=== PATIENT | female | born 1935 | race Caucasian/White ===

== ENCOUNTER 2022-08-31 02:52 | Inpatient (IN) ==
[2022-08-31] MEDS ORDERED: NS 0.9% 1000 ml BAG 1,000 ML IV ONE (03:01)
[2022-08-31 03:28] LABS: Hematocrit 37 % (35-47); Hemoglobin 11.8 g/dL (12.0-16.0); Mean Corpuscular HGB Conc 32 g/dL (31-36); Mean Corpuscular Hemoglobin 30 pg (27-31); Mean Corpuscular Volume 94 fL (80-97); Mean Platelet Volume 9.5 fL (7.4-10.4); Platelet Count 227 10^3/uL (150-450); Red Blood Count 3.93 10^6 /uL (3.70-4.87); Red Cell Distribution Width 14 % (10-15); White Blood Count 23.5 10^3/uL (3.5-10.8)
[2022-08-31] MEDS ORDERED: Pantoprazole VIAL 40 MG VIAL IV ONE (04:01)
[2022-08-31 04:07] LABS: Albumin 3.5 g/dL (3.2-5.2); Albumin/Globulin Ratio 1.4 (1-3); Calcium 9.3 mg/dL (8.6-10.3); Creatinine, Serum 3.28 mg/dL (0.51-0.95); Globulin 2.5 g/dL (2-4); Total Bilirubin 0.9 mg/dL (0.2-1.0); eGFR CKD-EPI 12.9 (>60)
[2022-08-31] MEDS ORDERED: Piperacillin/Tazobac ADVAN 3.375 GM in NS 0.9% 100 ml BAG 100 ML IV ONE (04:13)
[2022-08-31 04:20] LABS: Dohle Bodies Present; Hypochromasia 1+; RBC Morphology Normal (Normal)
[2022-08-31 04:21] LABS: ABS Lymphocytes 0.3 10^3/ul (1.0-4.8); ABS Monocytes 1.4 10^3/ul (0-0.8); ABS Neutrophils 21.8 10^3/ul (1.5-7.7); Lymphocyte % 1.2 %
[2022-08-31 04:30] LABS: Urine Appearance Cloudy; Urine Bilirubin Negative (Negative); Urine Blood Negative (Negative); Urine Color Yellow; Urine Glucose Negative (Negative); Urine Ketones Negative (Negative); Urine Nitrite Negative (Negative); Urine Protein 1+(30 mg/dL) (Negative); Urine Specific Gravity 1.012 (1.002-1.030); Urine Urobilinogen Negative (Negative)
[2022-08-31] MEDS ORDERED: Morphine ORAL CONCENTRATE 5 MG/0.25 ML ORAL.SYRIN PO PRN (04:31)
[2022-08-31 04:45] LABS: Urine Bacteria 1+ (Absent); Urine Red Blood Cell Trace(0-2/hpf) (Absent); Urine Squamous Epithelial Cell Present (Absent); Urine White Blood Cell Trace(0-5/hpf) (Absent)
[2022-08-31] MEDS ORDERED: Linezolid 600 MG IVPREMIX(*) 600 MG/300 ML BAG IVPB SCH (05:00)
[2022-08-31] MEDS ORDERED: Zosyn per Pharmacy NOTE FOLLOW UP SCH (05:00)
[2022-08-31 05:34] VITALS: BP 76/44
== END 2022-08-31 05:36 | disposition expired | DRG 377 ==
LOC: ED 02:52 → EDHOLD 04:39
PROVIDERS: ADMIT Student in an Organized Health Care Education/Training Program; ATTEND Student in an Organized Health Care Education/Training Program